=== PATIENT | female | born 1975 | race Caucasian/White ===

== ENCOUNTER 2021-01-21 11:07 | Emergency (ER) | payer OTHER, SELFPAY ==
[2021-01-21 11:35] VITALS: BP 101/69; PULSE 84; RESP 20; TEMP 37.3; O2SAT 94; BMI 32.3
--- NOTE | 2021-01-21 13:03 | XRR_ITS ---
PROCEDURE INFORMATION: Exam: XR Chest Exam date and time: 01/21/2021 1:03 PM Age: 45 years old Clinical indication: Shortness of breath; Additional info: Covid? TECHNIQUE: Imaging protocol: XR of the chest. Views: 1 view. COMPARISON: No relevant prior studies available. FINDINGS: Lungs: There is mild opacification in the lateral left mid and lung base. The right lung is clear. Pleural spaces: Unremarkable. No pleural effusion. No pneumothorax. Heart/Mediastinum: Unremarkable. No cardiomegaly. Bones/joints: Unremarkable. XR/XR chest 1V portable [id number] IMPRESSION: There is mild opacification in the lateral left mid and lung base suggestive of pneumonia. Clinical correlation is advised. Radiation Dose CTDIVOL = (mGy): DLP = (mGy-cm)
--- NOTE | 2021-01-21 13:12 | ED_ITS ---
HPI - General Adult General: Chief complaint: COVID symptoms Stated complaint: COVID SX:DIFF BREATHING, COUGH, LIMITED INTAKE Time Seen by Provider: 01/21/21 12:40 History of Present Illness: HPI narrative: CC: Shortness of breath, fever and generalized weakness HPI: This is a [45] yo patient w/ no PMH presenting to the ED with malaise, generalized weakness, cough sputum production, and fever at home x 5 days. Since onset of symptoms, has had some shortness of breath and decreased PO intake. NO recent travel. Endorses no sick contacts around. Endorses nausea and diarrhea. + tested positive for COVID tday. Denies chest pain, diaphoresis, other GI or complaints. Denies any pleuritic chest pain, recent surgery/immobilization/travel, or hematemesis or hx of VTE in the past. Onset: 5 days ago Duration: ongoing for the last 5 days Location: home Severity: moderate Review of Systems Narrative: Constitutional: +subjective fever, +generalized weakness HEENT: No vision changes CV: No chest pain, no palpitations PULM: +cough, +dyspnea. GI: No abdominal pain, +N/-V/+D. +decreased appetite : No dysuria MSKEL: No muscle pain SKIN: No new rashes, no lesions. NEURO: No headache, no focal weakness. HEME: No visible bruises PSYCH: Normal mood Physical Exam Narrative: EXAM NARRATIVE: Head: Atraumatic Eyes: PERRL, conjunctiva without injection ENT: Mucous membrane moist NECK: Supple without lymphadenopathy LUNGS: Coarse lung sounds, tachypnea, no crackles/wheezes/rhonchi on exam CV: RRR ABDOMEN: Soft, nontender EXTREMITY: Normal ROM SKIN: No rash or erythema NEURO: Awake and alert. No focal motor deficits. PSYCH: Normal mood and affect. Course Vital Signs: Vital signs: Vital Signs Temperature 99.1 F 01/21/21 11:35 Pulse Rate 79 01/21/21 14:14 Respiratory Rate 17 01/21/21 14:14 Blood Pressure 101/69 01/21/21 11:35 Pulse Oximetry 94 01/21/21 14:14 MDM - General Adult MDM Narrative: Medical decision making narrative: [45]yo patient presenting to the ED with shortness of breath, cough, and malaise concerning for pneumonia with findings of fever, decreased/junky breath sounds, and tachypnea. Workup today includes XR chest Defer lab work at this time given that the patient is well appearing with stable vital signs and without recent hospitalization or care facility stay. Given History, Exam, and Workup presentation most consistent with pneumonia.Presentation not consistent with PE, COPD exacerbation, Pneumothorax, TB, Atypical ACS, Esophageal Rupture, Toxic Exposure, Foreign Body Airway Obstruction. Workup: CXR Chest, COVID antigen/ COVID PCR send out Intervention: Tylenol 1gram, PO challenge, serial reassessment, oxygen [1:45pm] On reassessment, XR findings of mild ground-glass opacity. Covid test antigen negative today. Suspect COVID given XR finding. Afebrile currently. Patient continues to be in no respiratory distress with sats sats > 95% without requirements of oxygen in the emergency department. I have informed patient to follow-up with the PCR result. Patient has a portable pulse ox which she can use at home. Patient did not qualify for medical antibody at this time given negative antigen. I have discussed the workup today with patient who agrees to go home with serial observation. I have give patient strict return precautions for any worsening symptoms including worsening dyspnea, exertional dyspnea, cough, chest pain, dehydration, or any other concerns that patient may have. Disposition: Discharge. Patient is given strict follow up with PCP in 24-48 hrs for reassessment. Patient agrees with everything discussed today. Lab Data: Labs: Lab Results 01/21/21 01/21/21 13:30 13:30 Nasal/Oral COVID-1 9 PCR Cancelled SARS-CoV-2 Ag (Rap id) Negative (Negative) Imaging Data^: Other Imaging: Radiologist's impression: [address] [id number] ReportSigned Patient: NaviJuly Olegario #: [id number]: [id number]#:[id number]/Sex: 45 / FADM Date: 01/21/21Loc: ERRoom/Bed:Attending Dr: Ordering Provider/Ordering MD: Aaron Jang MD Date of Service: 01/21/21 Procedure(s): XR chest 1V portable [id number] Accession Number(s): [id number] Report Number: [id number] PROCEDURE INFORMATION: Exam: XR Chest Exam date and time: 01/21/2021 1:03 PM Age: 45 years old Clinical indication: Shortness of breath; Additional info: Covid? TECHNIQUE: Imaging protocol: XR of the chest. Views: 1 view. COMPARISON: No relevant prior studies available. FINDINGS: Lungs: There is mild opacification in the lateral left mid and lung base. The right lung is clear. Pleural spaces: Unremarkable. No pleural effusion. No pneumothorax. Heart/Mediastinum: Unremarkable. No cardiomegaly. Bones/joints: Unremarkable. XR/XR chest 1V portable [id number] IMPRESSION: There is mild opacification in the lateral left mid and lung base suggestive of pneumonia. Clinical correlation is advised. Radiation Dose CTDIVOL = (mGy): DLP = (mGy-cm) Dictated By:Tasha Franciscoigned By:Tasha Francisco MDSigned Date/Time:01/21/21 1522DD/ 1303 Discharge Plan Discharge Patient Disposition: Home Clinical Impression: Cough, Acute dyspnea Condition: Stable Discharge Orders: Discharge ED (Routine); Ordered 01/21/21 Ordered By: Aaron Jang Discharge Diet: Advance as tolerated Discharge Activity: Resume usual activity Patient Instructions: SARS (Severe Acute Respiratory Syndrome) (ED) Activity Restrictions/Additional Instructions: Come back to the emergency room if your symptoms worsen, have any shortness of breath, fever/chills, dehydration, inability tolerate p.o., any difficulty breathing, or any new or concerning complaints. Coding Level of Care Code ED Anesthesia Assistant for Shannan Beck
[2021-01-21 13:27] VITALS: O2SAT 95
[2021-01-21 13:36] VITALS: PULSE 78; O2SAT 94
[2021-01-21 14:03] LABS: SARS Covid-2 Antigen Negative (Negative)
[2021-01-21 14:14] VITALS: PULSE 79; RESP 17; O2SAT 94
[2021-01-22 18:06] LABS: Quest SARS-CoV-2 RNA DETECTED (NOT DETECTED)
== END 2021-01-21 14:15 | disposition home or self-care (01) ==
PROVIDERS: Emergency Provider Emergency Medicine
DX: U07.1 COVID-19 (principal)
CPT/HCPCS: 71045; 87426; 87635; 99282

== ENCOUNTER 2021-01-24 14:00 | Emergency (ER) | payer SELFPAY ==
[2021-01-24] VITALS (7 sets, daily range): BP systolic 103–123; BP diastolic 73–81; PULSE 65–91; RESP 16–20; TEMP 37.2; O2SAT 84–100
--- NOTE | 2021-01-24 14:37 | XR_ITS ---
WS: [id number] PORTABLE CHEST HISTORY: COVID/SOB COMPARISON: 01/21/2021 Bilateral interstitial thickening, greatest in the central LEFT lung. No dense areas of consolidation . No pleural effusion or pneumothorax. Cardiac size: Normal. Mediastinum/Aorta: Normal mediastinum. No osseous abnormality seen. XR/XR chest 1V portable [id number] IMPRESSION: Bilateral mild interstitial thickening, greatest on the LEFT. Consistent with p neumonitis.
--- NOTE | 2021-01-24 17:27 | ED_ITS ---
HPI - COVID General: Chief Complaint: COVID symptoms Stated Complaint: Low O2 Time Seen by Provider: 01/24/21 17:22 History of Present Illness: HPI Narrative: This patient is a 45-year-old female who presents to the emergency department sent by the health department to have monoclonal antibody treatment. Due to her COVID-19. Patient was positive for COVID-19 3 days ago. Patient describes dyspnea when ambulating. With ambulation pulse ox is 91%. Patient has no specific cough or no congestion. Patient states as long as she is not ambulating she does not get short of breath. Patient denies fever. MD complaint: known COVID positive Prior covid testing: yes, results known COVID 19 common symptoms: negative fever(s), chills, non-productive cough, productive cough, dyspnea, fatigue, body aches, headache(s), throat pain, nausea or vomiting COVID 19 other sytmptoms: negative chest pain COVID Results: SARS-CoV-2 Antigen (Rapid) Negative (Negative) 01/21/21 13:30 01/21/21 SARS-CoV-2 RNA (RT-PCR) Detected (NOT DETECTED) A 01/21/21 13:30 01/21/21 Review of Systems General: Reports: 10 or more systems reviewed and unremarkable except in HPI and below Const: Denies: fever(s), chills, body aches or fatigue Eyes: Denies: change in vision or blurry vision ENMT: Denies: throat pain, hoarseness or mouth pain Card: Denies: chest pain, palpitations, irregular heart rhythm, edema, swelling of feet/ankles or lightheadedness Resp: Denies: dyspnea, productive cough, non-productive cough, wheezing or pain on inspiration GI: Denies: abdominal pain, nausea or vomiting : Denies: flank pain, difficulty voiding, dysuria, urinary frequency, urinary urgency or urinary hesitancy Musc: Denies: neck pain, back pain, extremity pain, extremity swelling, joint pain, joint swelling, joint redness, joint warmth or limited range of motion Skin/Breast: Denies: rash, pruritus, erythema or skin tenderness Neuro: Denies: headache(s), numbness in extremities or weakness in extremities Psych: Denies: anxiety or depression PFS ED PFSH: Medical History COVID-19 Physical Exam Const: COMMON NORMALS: no acute distress, average body habitus, patient oriented x3, no limitations, healthy appearing, alert and well nourished HENMT: COMMON NORMALS: normocephalic, atraumatic, hearing grossly normal bilaterally, external ears normal, EAC's normal, TM's normal bilaterally, Normal external nose present, Normal nasal mucous membranes and turbinates present, moist oral mucous membranes, oropharynx normal, dentition normal and gingiva normal HEAD & SCALP: normocephalic and atraumatic NOSE: Normal external nose present and Normal nasal mucous membranes and turbinates present EXTERNAL EAR: Yes external ears normal EXTERNAL AUDITORY CANAL: EAC's normal TYMPANIC MEMBRANE: TM's normal bilaterally Neck/C-Spine: COMMON NORMALS: full ROM, no lymphadenopathy, supple, no meningeal signs, no JVD, Thyroid normal and No carotid bruits THYROID: Thyroid normal Chest: COMMONS NORMALS: normal inspection of the chest, normal palpation of entire chest wall, normal inspection of the breasts and normal palpation of the breasts Breast/axilla inspection: Yes normal inspection of the breasts BREAST/AXILLA PALPATION: Yes normal palpation of the breasts Resp: COMMON NORMALS: normal respiratory effort, No retractions, No use of accessory muscles, clear to auscultation bilaterally and percussion normal AUSCULTATION: clear to auscultation bilaterally PERCUSSION: percussion normal Cardio: COMMON NORMALS: no JVD, regular rate, regular rhythm, S1 normal heart sound present, S2 normal heart sound present, No gallops present (Cardio), No clicks present (Cardio), No murmurs present (Cardio), No rub (Cardio) and Peripheral pulses 2+ throughout RATE: regular rate RHYTHM: regular rhythm HEART SOUNDS: S1 normal heart sound present and S2 normal heart sound present PERIPHERAL PULSES: Peripheral pulses 2+ throughout GI: COMMON NORMALS: Normal to inspection, nondistended, normoactive bowel sounds present, Soft to palpation, non-tender, No hepatosplenomegaly present, no masses and no bruits PALPATION: Yes Soft to palpation and Yes No hepatosplenomegaly present Back/Pelvis: COMMON NORMALS: thoracic and lumbar spine normal to inspection, no thoracic nor lumbar tenderness, thoraco-lumbar ROM normal and straight leg raise negative bilaterally Extremity: COMMON NORMALS: normal to inspection, full ROM, capillary refill normal, no joint enlargement, no clubbing, cyanosis or edema, no calf tenderness and no pedal edema Neuro: COMMON NORMALS: patient oriented x3 SENSORIUM/ORIENTATION: Yes alert MENINGEAL SIGNS: Yes no meningeal signs Course Vital Signs: Vital signs: Vital Signs Temperature 98.9 F 01/24/21 14:29 Pulse Rate 80 01/24/21 16:25 Respiratory Rate 20 H 01/24/21 16:25 Blood Pressure 103/73 01/24/21 14:29 Pulse Oximetry 93 01/24/21 16:25 MDM - COVID MDM Narrative: Medical decision making narrative: This patient is a 45-year-old female who presents to the emergency department sent by the health department to have monoclonal antibody treatment. Due to her COVID-19. Patient was positive for COVID-19 3 days ago. Patient describes dyspnea when ambulating. With ambulation pulse ox is 91%. Patient has no specific cough or no congestion. Patient states as long as she is not ambulating she does not get short of breath. Patient denies fever. MCA ordered for outpatient DME. Case management to follow-up appointment time. Patient provided phone number to call to confirm appointment tomorrow. Patient only describes dyspnea on exertion. Will give prescription for ProAir puffer inhaler. Patient is to follow-up with primary care physician as needed. Call tomorrow for appointment time for MCA. COVID Results: SARS-CoV-2 Antigen (Rapid) Negative (Negative) 01/21/21 13:30 01/21/21 SARS-CoV-2 RNA (RT-PCR) Detected (NOT DETECTED) A 01/21/21 13:30 01/21/21 Discharge Plan Discharge Patient Disposition: Home Clinical Impression: COVID-19 Condition: Stable Prescriptions: New albuterol sulfate 90 mcg/actuation HFA aerosol inhaler 2 puff inhalation Q4H PRN (Reason: shortness of breath or wheezing) Qty: 8.5 RF: 0 Discharge Orders: Discharge ED (Routine); Ordered 01/24/21 Ordered By: Dimitri Kelly Other Ambulatory Orders: Request for MCA (Routine) Timeframe: 1 Day Facility: [facility] - Location: [facility] Ordered By: Dimitri Kelly Discharge Diet: Advance as tolerated Discharge Activity: Resume usual activity Patient Instructions: Opioid Safety Activity Restrictions/Additional Instructions: Get plenty of rest, cool mist humidifier as needed. You have been given a prescription for albuterol puff inhaler. 1 to 2 puffs as needed with dyspnea on exertion. You have been sick ordered a monoclonal antibody infusion for tomorrow. ER telephonic nurse case manager will try to set up an appointment for you for tomorrow. Call the phone number that was provided to you tomorrow morning around 9 AM for appointment time. Coding Level of Care Code ED Lining Strap Closer for Shannan Beck
--- NOTE | 2021-01-31 15:38 | DCPLANNER ---
dog track kennel manager had message to confirm that patient had an appointment scheduled for the monoclonal antibody infusion. Patient did have the infusion scheduled and attended.
== END 2021-01-24 20:25 | disposition home or self-care (01) ==
PROVIDERS: Emergency Provider Emergency Medicine
DX: U07.1 COVID-19 (principal)
CPT/HCPCS: 71045; 99283